=== PATIENT | male | born 1985 | race Caucasian/White ===

== ENCOUNTER 2023-08-11 12:44 | Emergency (ER) | payer OTHER ==
[~2023-08-11] VITALS: Ht 175.3 cm; Wt 92.7 kg
[2023-08-11 13:52] LABS: BASO % 0.4 % (0.0-1.0); EOS # 0.1 10^3/uL (0.0-0.5); EOS % 0.6 % (0.0-3.0); HEMATOCRIT 47.7 % (42.0-52.0); HEMOGLOBIN 15.7 g/dl (13.5-17.5); LYMPH # 2.4 10^3/uL (1.5-5.0); LYMPH % 29.4 % (24.0-44.0); MEAN CORPUSCULAR HEMOGLOBIN 26.6 pg (27.0-33.0); MEAN CORPUSCULAR HGB CONC 32.9 g/dl (32.0-36.5); MEAN CORPUSCULAR VOLUME 80.7 fl (80.0-96.0); MONO # 0.8 10^3/uL (0.0-0.8); MONO % 9.9 % (2.0-8.0); NEUTROPHILS # 4.9 10^3/uL (1.5-8.5); NEUTROPHILS % 59.3 % (36.0-66.0); PLATELET COUNT, AUTOMATED 361 10^3/uL (150-450); RED BLOOD COUNT 5.91 10^6/uL (4.30-6.10); WHITE BLOOD COUNT 8.2 10^3/uL (4.0-10.0)
[2023-08-11 14:04] LABS: INR 1.04; PROTHROMBIN TIME 13.3 SECONDS (12.5-14.5)
[2023-08-11 14:05] LABS: PARTIAL THROMBOPLASTIN TIME 30.1 SECONDS (24.8-34.2)
[2023-08-11 14:12] LABS: LIPASE 32 U/L (12-53)
[2023-08-11 14:15] LABS: ALBUMIN 4.3 G/DL (3.2-5.2); ALKALINE PHOSPHATASE 85 U/L (46-116); ALT/SGPT 37 U/L (7.0-40); AST/SGOT 23 U/L (<34); BILIRUBIN,DIRECT 0.1 MG/DL (<0.4); BILIRUBIN,TOTAL 0.5 MG/DL (0.3-1.2); BLOOD UREA NITROGEN 18 MG/DL (9-23); CALCIUM LEVEL 9.8 MG/DL (8.5-10.1); CARBON DIOXIDE LEVEL 25 MMOL/L (20-31); CHLORIDE LEVEL 108 MMOL/L (98-107); CK-MB VALUE MASS < 1.0 NG/ML (<3.6); CREATININE FOR GFR 0.83 MG/DL (0.70-1.30); GLOMERULAR FILTRATION RATE > 60.0 (>60); GLUCOSE, FASTING 87 MG/DL (60-100); POTASSIUM SERUM 4.2 MMOL/L (3.5-5.1); SODIUM LEVEL 133 MMOL/L (136-145); TOTAL PROTEIN 8.2 G/DL (5.7-8.2)
[2023-08-11 14:16] LABS: THYROID STIMULATING HORMONE 1.317 uIU/ML (0.55-4.78)
[2023-08-11 14:17] LABS: FREE T4 1.11 NG/DL (0.89-1.76)
[2023-08-11 14:18] LABS: CPK CREATINE PHOSPHOKINASE 95 U/L (46-171); MB/CK RELATIVE INDEX 1.05 (< OR =4)
[2023-08-11 15:20] LABS: CK-MB VALUE MASS < 1.0 NG/ML (<3.6)
[2023-08-11 15:21] LABS: CPK CREATINE PHOSPHOKINASE 86 U/L (46-171); MB/CK RELATIVE INDEX 1.16 (< OR =4)
[2023-08-11 15:45] VITALS: BP 114/81; TEMP 97.6; O2SAT 97
== END 2023-08-11 15:57 | disposition home or self-care (01) ==
LOC: M ED 12:44
DX: R07.9 Chest pain, unspecified (principal); F43.0 Acute stress reaction

== ENCOUNTER → 2024-07-31 | Outpatient (CLI) | payer OTHER | LOC: M SOG 07:52 | PROVIDERS: ATTEND Physician Assistant | DX: M79.641 Pain in right hand (principal); Z53.9 Procedure and treatment not carried out, unspecified reason ==

== ENCOUNTER 2024-09-02 09:21 | Emergency (ER) | payer OTHER ==
[~2024-09-02] VITALS: Ht 175.3 cm; Wt 96.6 kg
[2024-09-02 11:25] VITALS: BP 134/97; TEMP 98.4; O2SAT 98
== END 2024-09-02 11:56 | disposition home or self-care (01) ==
LOC: M ED 09:21
DX: M79.641 Pain in right hand (principal); W23.0XXA Caught, crushed, jammed, or pinched between moving objects, initial encounter; Y92.89 Other specified places as the place of occurrence of the external cause; Y93.89 Activity, other specified; Y99.1 Military activity